=== PATIENT | male | born 1965 | race African-American/Black ===

== ENCOUNTER 2016-05-12 07:27 | Outpatient (CLI) | payer MEDICARE, OTHER ==
[2016-05-12 08:26] LABS: INR-International Normal Ratio 2.3; Prothrombin Time 25.6 SEC (12.0-14.7)
== END 2016-05-12 07:28 | disposition home or self-care (01) ==
LOC: MADLAB 07:27
PROVIDERS: ATTEND Pharmacist
DX: Z51.81 Encounter for therapeutic drug level monitoring (principal); Z79.01 Long term (current) use of anticoagulants
CPT/HCPCS: 36415; 85610

== ENCOUNTER 2016-05-25 23:24 | Emergency (ER) | payer MEDICARE, OTHER ==
[2016-05-26] MEDS ORDERED: cloNIDine HCl 0.1 MG TAB ONE
--- NOTE | 2016-05-26 00:41 | ERRECORD ---
[facility] EMERGENCY RECORD HPI HYPERTENSION (23:55 SHAN) CHIEF COMPLAINT: Patient presents for evaluation of high blood pressure. HISTORIAN: History provided by patient, States that his bp went up after dialysis today. TIME COURSE: Gradual onset of symptoms. ASSOCIATED WITH: No associated symptoms. ROS (23:56 SHAN) CONSTITUTIONAL: Negative constitutional review of systems, Historian denies chills, denies fever. EYES: Negative eye review of systems. ENT: Negative ears, nose, throat review of systems. CARDIOVASCULAR: Negative cardiovascular review of systems, Historian denies chest pain, denies palpitations. RESPIRATORY: Negative respiratory review of systems, Historian denies cough, denies shortness of breath. GI: Negative gastrointestinal review of systems, Historian denies abdominal pain, denies constipation, denies diarrhea. MUSCULOSKELETAL: Negative musculoskeletal review of systems. SKIN: Negative skin review of systems. NEUROLOGIC: Negative neurologic review of systems. ENDOCRINE: Negative endocrine review of systems. HEMO/LYMPHATIC: Normal hematologic/lymphatic system review. PSYCHIATRIC: Negative psychiatric review of systems. NOTES: All other ROS is negative except as listed in HPI. PAST MEDICAL HISTORY MEDICAL HISTORY: Flu vaccine up to date, Date of immunization: 01/2016, Tetanus immunization up to date, Date of immunization: 2015, Pneumococcal vaccine up to date, Date of immunization: 2015, Past medical history includes cardiac history, congestive heart failure, pacer maker removed - life vest now.., Past medical history includes history of hypertension, which has been treated, Flu vaccine up to date, Tetanus immunization up to date, Past medical history includes renal disease, failure on hemodialysis, (T,TH,SAT) Past medical history includes cardiac history, Past medical history includes history of hypertension, which has been treated. Notes: PT LAST ADMITTED IN 2009 FOR CHF AT [facility] Past medical history includes cardiac history, Past medical history includes history of hypertension, which has been treated. REVIEWED ON 02/28/16. reviewed 2-06-09. 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 05/16/14 Valve Replacement 2009 at [facility] in [place]. AICD PLACED 08/2014 AT [facility]. AICH REMOVED DEC 2015 DUE TO INFECTION. REVIEWED ON 02/28/16. reviewed 2-. (23:49 MCRS) PSYCHIATRIC HISTORY: No previous psychiatric history. REVIEWED ON 02/28/16. (23:49 MCRS) &a-1R&a+25V*p+0X*j9242X*c202B*c15G*c2P*p-0X&a-25V&a+1R Name: Iam Hutchison : 1965 M51 MedRec: [id number] AcctNum: [id number] Prepared: SunMay 26, 2016 00:41 by Interface Page 1 of 4 pMD [facility] EMERGENCY RECORD SOCIAL HISTORY: Patient denies alcohol use, Patient denies drug use, Patient has no smoking history, Patient denies alcohol use, Patient denies drug use, Patient has no smoking history, Patient has no smoking history, Patient denies alcohol use, DENIES DRUGS. REVIEWED ON 02/28/16. (23:49 MCRS) FAMILY HISTORY: CHF HX. dm and htn. (23:49 MCRS) NOTES: I have reviewed and agree with the PMH/PSxH/FamHx/SocHx obtained by the nurse. (23:56 SHAN) KNOWN ALLERGIES No Known Allergies CURRENT MEDICATIONS (23:41 MCRS) amiodarone: TABLET : Strength - 200 mg : ORAL Patient Dose: 200 mg Oral 2 times a day. Iron (ferrous sulfate): TABLET : Strength - 325 mg (65 mg iron) : ORAL Patient Dose: 325 mg Oral 2 times a day. Revatio: TABLET : Strength - 20 mg : ORAL Patient Dose: 20 mg Oral 3 times a day. Coreg: TABLET : Strength - 3.125 mg : ORAL Patient Dose: 3.125 mg Oral 2 times a day. Aspir-Low: TABLET, DELAYED RELEASE (ENTERIC COATED) : Strength - 81 mg : ORAL Patient Dose: 81 mg Oral once a day. warfarin: TABLET : Strength - 7.5 mg : ORAL Patient Dose: 7.5 mg Oral once a day. furosemide: TABLET : Strength - 80 mg : ORAL Patient Dose: 80 mg Oral 2 times a day. VITAL SIGNS VITAL SIGNS: BP: 158/111 (Sitting), Pulse: 83, Resp: 22, Temp: 97.0 (Tympanic), Pain: 0, O2 sat: 99% on Room Air, Time: 05/25/2016 23:31. (23:31 MCRS) BP: 129/96, Pulse: 75, Resp: 18, Pain: 0, O2 sat: 99 on ra, Time: 05/25/2016 23:50. (23:50 MCRS) BP: 139/101, Pulse: 69, Resp: 14, O2 sat: 97 on Room Air, Time: 05/26/2016 00:05. (SunMay 26, 2016 00:05 MCRS) BP: 142/99, Pulse: 78, Resp: 16, Temp: 96.8, Pain: 0, O2 sat: 97 on ra, Time: 05/26/2016 00:30. (SunMay 26, 2016 00:30 MCRS) PHYSICAL EXAM (23:56 SHAN) CONSTITUTIONAL: Vital signs reviewed, Patient appears non toxic, Patient alert and oriented to person, place and time, Pt is in no apparent distress. &a-1R&a+25V*p+0X*m5385M*c202B*c15G*c2P*p-0X&a-25V&a+1R Name: Iam Hutchison : 1965 M51 MedRec: [id number] AcctNum: [id number] Prepared: SunMay 26, 2016 00:41 by Interface Page 2 of 4 pMD [facility] EMERGENCY RECORD HEAD: Head exam included findings of head atraumatic, normocephalic. EYES: Eye exam included findings of eyelids normal to inspection, Pupils equally round and reactive to light, Extraocular muscles intact. ENT: ENT exam normal, Nose exam normal, no nasal deformity, no bleeding from nares, Pharynx exam normal, Mouth exam normal, mucous membranes moist. NECK: Neck exam included findings of normal range of motion, Trachea midline. RESPIRATORY CHEST: Respiratory and chest exam normal, Breath sounds clear, No wheezing, No rales, Chest exam included findings of chest movement symmetrical, Chest expansion equal. CARDIOVASCULAR: Cardiovascular assessment normal, Cardiovascular exam included findings of heart rate regular rate and rhythm, Heart sounds normal. ABDOMEN MALE: Abdominal exam included findings of abdomen nontender, Bowel sounds normal, no mass, no pulsatile masses, no peritoneal signs, no rigidity, no guarding, no rebound. BACK: Back exam included findings of normal inspection, range of motion normal, no costovertebral angle tenderness. UPPER EXTREMITY: Upper extremity exam included findings of inspection normal, Range of motion normal. LOWER EXTREMITY: Lower extremity exam included findings of inspection normal, Range of motion normal. NEURO: Neuro exam findings include patient oriented to person, place and time, Speech normal, no focal motor deficits, no focal sensory deficits. SKIN: Skin exam included findings of skin warm, dry, and normal in color. LYMPHATIC: Lymphatic exam normal. PSYCHIATRIC: Psychiatric exam included findings of patient oriented to person place and time, Normal affect. MEDICATION ADMINISTRATION SUMMARY Drug Name: Catapres, Dose Ordered: 0.2 mg, Route: Oral, Status: Canceled, Time: 00:01 05/26/2016, Drug Name: *Catapres, Dose Ordered: 1 tab(s), Route: Oral, Status: Given, Time: 00:05/26/2016, *Additional information available in notes, Detailed record available in Medication Service section. DOCTOR NOTES TEXT: Adult male on dialysis; bp went up today. (23:56 SHAN) Blood pressure came down largely with rest; gave 0.1 mg clonidine po. Appears to have some sleep apnea noted; discussed. (SunMay 26, 2016 00:19 SHAN) PROBLEM LIST &a-1R&a+25V*p+0X*m8824T*c202B*c15G*c2P*p-0X&a-25V&a+1R Name: Iam Hutchison : 1965 M51 MedRec: [id number] AcctNum: [id number] Prepared: SunMay 26, 2016 00:41 by Interface Page 3 of 4 pMD [facility] EMERGENCY RECORD No recorded problems DIAGNOSIS (SunMay 26, 2016 00:21 SHAN) FINAL: PRIMARY: Hypertension, ADDITIONAL: chronic renal failure. PRESCRIPTION No recorded prescriptions DISPOSITION PATIENT: Disposition Type: Discharge, Disposition: *Discharge Home. (SunMay 26, 2016 00:21 SHAN) Disposition Transport: Car. (SunMay 26, 2016 00:39 [facility]) Patient left the department. (SunMay 26, 2016 00:39 [facility]) Dunaway: MARINA=EHSAN Barron, Km DELANEY=MD Saima, Lionel &a-1R&a+25V*p+0X*t7519A*c202B*c15G*c2P*p-0X&a-25V&a+1R Name: Iam Hutchison : 1965 M51 MedRec: [id number] AcctNum: [id number] Prepared: SunMay 26, 2016 00:41 by Interface Page 4 of 4 pMD MTDD
--- NOTE | 2016-05-26 00:44 | PICIS ---
[facility] EMERGENCY RECORD TRIAGE (SunMay 25, 2016 23:36 MCRS) TRIAGE NOTES: high blood pressure - nausia and vomiting since 1 hour. (SunMay 25, 2016 23:36 MCRS) PATIENT: NAME: Iam Hutchison, AGE: 51, GENDER: male, : Sat 1965, TIME OF GREET: SunMay 25, 2016 23:25, PREFERRED LANGUAGE: Arabic, ETHNICITY: Not or , FALL RISK: NO, ECODE BILLING MAP: [facility], SSN: [id number], Zip Code: [address], KG WEIGHT: 97.07 (est.), PHONE: CELL, , , PERSON ID: [id number], PCP: MD Barron Olayemi. (SunMay 25, 2016 23:36 MCRS) COMPLAINT: BLOOD PRESSURE. (SunMay 25, 2016 23:36 MCRS) ADMISSION: URGENCY: 3 Urgent, ADMISSION SOURCE: Home, TRANSPORT: CAR, BED: ED -03. (SunMay 25, 2016 23:36 MCRS) ASSESSMENT: Assessment: complaint of high blood pressure via checked at home ... note that patient had dialysis today and patient stated this is a cintributing factor..., Symptoms began 1 hour ago. (23:49 MCRS) IMMUNIZATIONS: Flu vaccine up to date, Tetanus immunization up to date, Pneumococcal vaccine up to date. (23:49 MCRS) SIRS SCORING: Heart Rate 55-109 (0), Temp range 96.8-101.1 (0), respiratory rate 12-24 (0), Mental Status altered: no (0), Infection or Suspected Infection: No. (23:49 MCRS) PROVIDERS: TRIAGE NURSE: Km Barron RN. (SunMay 25, 2016 23:36 MCRS) VITAL SIGNS: BP 158/111, (Sitting), Pulse 83, Resp 22, Temp 97.0, (Tympanic), Pain 0, O2 Sat 99%, on Room Air, Time 05/25/2016 23:31. (23:31 MCRS) PREVIOUS VISIT ALLERGIES: No Known Allergies. (Monisha May 25, 2016 23:36 MCRS) No Known Allergies. (23:49 MCRS) KNOWN ALLERGIES No Known Allergies CURRENT MEDICATIONS (23:41 MCRS) amiodarone: TABLET : Strength - 200 mg : ORAL Patient Dose: 200 mg Oral 2 times a day. Iron (ferrous sulfate): TABLET : Strength - 325 mg (65 mg iron) : ORAL Patient Dose: 325 mg Oral 2 times a day. Revatio: TABLET : Strength - 20 mg : ORAL Patient Dose: 20 mg Oral 3 times a day. Coreg: TABLET : Strength - 3.125 mg : ORAL Patient Dose: 3.125 mg Oral 2 times a day. Aspir-Low: TABLET, DELAYED RELEASE (ENTERIC COATED) : Strength - 81 mg : ORAL Patient Dose: 81 mg Oral once a day. &a-1R&a+25V*p+0X*a6167B*c202B*c15G*c2P*p-0X&a-25V&a+1R Name: Iam Hutchison Archie : 1965 M51 MedRec: [id number] AcctNum: [id number] Prepared: SunMay 26, 2016 00:48 by Interface Page 1 of 6 pMD [facility] EMERGENCY RECORD warfarin: TABLET : Strength - 7.5 mg : ORAL Patient Dose: 7.5 mg Oral once a day. furosemide: TABLET : Strength - 80 mg : ORAL Patient Dose: 80 mg Oral 2 times a day. VITAL SIGNS VITAL SIGNS: BP: 158/111 (Sitting), Pulse: 83, Resp: 22, Temp: 97.0 (Tympanic), Pain: 0, O2 sat: 99% on Room Air, Time: 05/25/2016 23:31. (23:31 MCRS) BP: 129/96, Pulse: 75, Resp: 18, Pain: 0, O2 sat: 99 on ra, Time: 05/25/2016 23:50. (23:50 MCRS) BP: 139/101, Pulse: 69, Resp: 14, O2 sat: 97 on Room Air, Time: 05/26/2016 00:05. (SunMay 26, 2016 00:05 MCRS) BP: 142/99, Pulse: 78, Resp: 16, Temp: 96.8, Pain: 0, O2 sat: 97 on ra, Time: 05/26/2016 00:30. (SunMay 26, 2016 00:30 MCRS) NURSING ASSESSMENT: CARDIOVASCULAR (23:50 MCRS) CONSTITUTIONAL: Patient arrives ambulatory, Gait steady, History obtained from patient, Patient appears comfortable, Patient cooperative, Patient alert, Oriented to person, place and time, Skin warm, Skin dry, Skin normal in color, Mucous membranes pink, Mucous membranes, dry, Patient is well-groomed, Patient complains of nausia - high blood pressure, taken at home - 160/124. CARDIOVASCULAR: Cardiovascular assessment findings include heart rate normal, Heart rhythm normal sinus, Heart sounds, artifical valve click, Left radial pulse +3(easily palpated, considered normal), Right radial pulse +3(easily palpated, considered normal), Left dorsalis pedis pulse +3(easily palpated, considered normal), Right dorsalis pedis pulse +3(easily palpated, considered normal), Notes: history chf. RESPIRATORY/CHEST: Breath sounds clear, Respiratory assessment findings include respiratory effort easy, Respirations regular, Conversing normally, Neck and chest exam findings include trachea midline, Chest expansion equal, Chest movement symmetrical. SAFETY: Side rails up, Cart/Stretcher in lowest position, Family at bedside, Call light within reach, Hospital ID band on. VITAL SIGNS: BP: 129, / 96, Pulse: 75, Resp: 18, Pain: 0, O2 sat: 99, on: ra. NURSING PROCEDURE: COMMERCIAL AIRPLANE PILOT (SunMay 26, 2016 00:01 MCRS) PATIENT IDENTIFIER: Patient actively involved in identification process, Patient's identity verified by hospital ID saturnino. COMMERCIAL AIRPLANE PILOT: Patient placed on non-invasive blood pressure monitor, Patient placed on continuous pulse oximetry. NURSING PROCEDURE: DISCHARGE NOTE (SunMay 26, 2016 00:30 MCRS) DISCHARGE: Patient discharged to home, in a wheelchair, &a-1R&a+25V*p+0X*l8731Y*c202B*c15G*c2P*p-0X&a-25V&a+1R Name: Iam Hutchison : 1965 M51 MedRec: [id number] AcctNum: [id number] Prepared: SunMay 26, 2016 00:48 by Interface Page 2 of 6 pMD [facility] EMERGENCY RECORD family driving, accompanied by other family member, Summary of Care printed/ provided, Patient requested and was provided an electronic copy of Discharge Instructions, Transition record given to patient, Discharge instructions given to patient, Simple or moderate discharge teaching performed, discharge instructions, Medication reconciliation form given, and reviewed with see list, Above person(s) verbalized understanding of discharge instructions and follow-up care, Patient treated and evaluated by physician. BELONGINGS: Valuables remain with patient. VITAL SIGNS: BP: 142, / 99, Pulse: 78, Resp: 16, Temp: 96.8, Pain: 0, O2 sat: 97, on: ra. MEDICATION ADMINISTRATION SUMMARY Drug Name: Catapres, Dose Ordered: 0.2 mg, Route: Oral, Status: Canceled, Time: 00:01 05/26/2016, Drug Name: *Catapres, Dose Ordered: 1 tab(s), Route: Oral, Status: Given, Time: 00:01 05/26/2016, *Additional information available in notes, Detailed record available in Medication Service section. MEDICATION SERVICE Catapres: Order: Catapres (clonidine HCl) - Dose: 1 tab(s) : Oral Schedule: Now Notes: 0.1 mg po Ordered by: Lionel Landaverde MD Entered by: Lionel Landaverde MD SunMay 26, 2016 00:01 , Acknowledged by: Km Barron RN SunMay 26, 2016 00:03 Documented as given by: Km Barron RN SunMay 26, 2016 00:01 Patient, Medication, Dose, Route and Time verified prior to administration. Amount given: 0.1mg, Site: Medication administered P.O., Patient appears Awake and alert- acceptable, Correct patient, time, route, dose and medication confirmed prior to administration, Patient advised of actions and side-effects prior to administration, Allergies confirmed and medications reviewed prior to administration, Patient in position of comfort, Side rails up, Cart in lowest position, Family at bedside. : Follow Up : Response assessment performed, No signs or symptoms of allergic reaction noted, Decreased blood pressure. (SunMay 26, 2016 00:30 MCRS) (CANCELED) Catapres: Order: Catapres (clonidine HCl) - Dose: 0.2 mg : Oral Schedule: Now Ordered by: Lionel Landaverde MD Entered by: Lionel Landaverde MD [facility] May 25, 2016 23:51 , Acknowledged by: Km Barron RN [facility] May 25, 2016 23:58 Canceled by: Lionel Landaverde MD. SunMay 26, 2016 00:01 Cancel reason: Change in medication plan. &a-1R&a+25V*p+0X*q9654G*c202B*c15G*c2P*p-0X&a-25V&a+1R Name: Iam Hutchison : 1965 M51 MedRec: [id number] AcctNum: [id number] Prepared: SunMay 26, 2016 00:48 by Interface Page 3 of 6 pMD [facility] EMERGENCY RECORD HPI HYPERTENSION (23:55 SHAN) CHIEF COMPLAINT: Patient presents for evaluation of high blood pressure. HISTORIAN: History provided by patient, States that his bp went up after dialysis today. TIME COURSE: Gradual onset of symptoms. ASSOCIATED WITH: No associated symptoms. ROS (23:56 SHAN) CONSTITUTIONAL: Negative constitutional review of systems, Historian denies chills, denies fever. EYES: Negative eye review of systems. ENT: Negative ears, nose, throat review of systems. CARDIOVASCULAR: Negative cardiovascular review of systems, Historian denies chest pain, denies palpitations. RESPIRATORY: Negative respiratory review of systems, Historian denies cough, denies shortness of breath. GI: Negative gastrointestinal review of systems, Historian denies abdominal pain, denies constipation, denies diarrhea. MUSCULOSKELETAL: Negative musculoskeletal review of systems. SKIN: Negative skin review of systems. NEUROLOGIC: Negative neurologic review of systems. ENDOCRINE: Negative endocrine review of systems. HEMO/LYMPHATIC: Normal hematologic/lymphatic system review. PSYCHIATRIC: Negative psychiatric review of systems. NOTES: All other ROS is negative except as listed in HPI. PAST MEDICAL HISTORY MEDICAL HISTORY: Flu vaccine up to date, Date of immunization: 01/2016, Tetanus immunization up to date, Date of immunization: 2015, Pneumococcal vaccine up to date, Date of immunization: 2015, Past medical history includes cardiac history, congestive heart failure, pacer maker removed - life vest now.., Past medical history includes history of hypertension, which has been treated, Flu vaccine up to date, Tetanus immunization up to date, Past medical history includes renal disease, failure on hemodialysis, (T,TH,SAT) Past medical history includes cardiac history, Past medical history includes history of hypertension, which has been treated. Notes: PT LAST ADMITTED IN 2009 FOR CHF AT [facility] Past medical history includes cardiac history, Past medical history includes history of hypertension, which has been treated. REVIEWED ON 02/28/16. reviewed 05-25-16. 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 05/16/14 Valve Replacement 2009 at [facility] in [place]. AICD PLACED 08/2014 AT [facility]. AICH REMOVED DEC 2015 DUE TO INFECTION. REVIEWED ON 02/28/16. reviewed 05-25-2016. (23:49 MCRS) PSYCHIATRIC HISTORY: No previous psychiatric history. REVIEWED ON 02/28/16. (23:49 MCRS) &a-1R&a+25V*p+0X*v5787C*c202B*c15G*c2P*p-0X&a-25V&a+1R Name: Iam Hutchison : 1965 M51 MedRec: [id number] AcctNum: [id number] Prepared: SunMay 26, 2016 00:48 by Interface Page 4 of 6 pMD [facility] EMERGENCY RECORD SOCIAL HISTORY: Patient denies alcohol use, Patient denies drug use, Patient has no smoking history, Patient denies alcohol use, Patient denies drug use, Patient has no smoking history, Patient has no smoking history, Patient denies alcohol use, DENIES DRUGS. REVIEWED ON 02/28/16. (23:49 MCRS) FAMILY HISTORY: CHF HX. dm and htn. (23:49 MCRS) NOTES: I have reviewed and agree with the PMH/PSxH/FamHx/SocHx obtained by the nurse. (23:56 SHAN) PHYSICAL EXAM (23:56 SHAN) CONSTITUTIONAL: Vital signs reviewed, Patient appears non toxic, Patient alert and oriented to person, place and time, Pt is in no apparent distress. HEAD: Head exam included findings of head atraumatic, normocephalic. EYES: Eye exam included findings of eyelids normal to inspection, Pupils equally round and reactive to light, Extraocular muscles intact. ENT: ENT exam normal, Nose exam normal, no nasal deformity, no bleeding from nares, Pharynx exam normal, Mouth exam normal, mucous membranes moist. NECK: Neck exam included findings of normal range of motion, Trachea midline. RESPIRATORY CHEST: Respiratory and chest exam normal, Breath sounds clear, No wheezing, No rales, Chest exam included findings of chest movement symmetrical, Chest expansion equal. CARDIOVASCULAR: Cardiovascular assessment normal, Cardiovascular exam included findings of heart rate regular rate and rhythm, Heart sounds normal. ABDOMEN MALE: Abdominal exam included findings of abdomen nontender, Bowel sounds normal, no mass, no pulsatile masses, no peritoneal signs, no rigidity, no guarding, no rebound. BACK: Back exam included findings of normal inspection, range of motion normal, no costovertebral angle tenderness. UPPER EXTREMITY: Upper extremity exam included findings of inspection normal, Range of motion normal. LOWER EXTREMITY: Lower extremity exam included findings of inspection normal, Range of motion normal. NEURO: Neuro exam findings include patient oriented to person, place and time, Speech normal, no focal motor deficits, no focal sensory deficits. SKIN: Skin exam included findings of skin warm, dry, and normal in color. LYMPHATIC: Lymphatic exam normal. PSYCHIATRIC: Psychiatric exam included findings of patient oriented to person place and time, Normal affect. EVENTS TRANSFER: Triage to Emergency Main ED -03. (SunMay 25, 2016 23:36 MCRS) &a-1R&a+25V*p+0X*c4161X*c202B*c15G*c2P*p-0X&a-25V&a+1R Name: Iam Hutchison : 1965 M51 MedRec: [id number] AcctNum: [id number] Prepared: SunMay 26, 2016 00:48 by Interface Page 5 of 6 pMD [facility] EMERGENCY RECORD Removed from Emergency Main ED -03. (SunMay 26, 2016 00:40 MCRS) DOCTOR NOTES TEXT: Adult male on dialysis; bp went up today. (23:56 SHAN) Blood pressure came down largely with rest; gave 0.1 mg clonidine po. Appears to have some sleep apnea noted; discussed. (SunMay 26, 2016 00:19 SHAN) PROBLEM LIST No recorded problems DIAGNOSIS (SunMay 26, 2016 00:21 SHAN) FINAL: PRIMARY: Hypertension, ADDITIONAL: chronic renal failure. DISPOSITION PATIENT: Disposition Type: Discharge, Disposition: *Discharge Home. (SunMay 26, 2016 00:21 SHAN) Disposition Transport: Car. (SunMay 26, 2016 00:39 MCRS) Patient left the department. (SunMay 26, 2016 00:39 [facility]) INSTRUCTION (SunMay 26, 2016 00:22 SHAN) DISCHARGE: HYPERTENSION, ESTABLISHED. FOLLOWUP: MD Anderson, Ching, [facility], [address] [place] [address], . SPECIAL: 1. followup with regular provider in a few days 2. discuss with them some likely sleep apnea; oxygen sats dropped while sleeping in the er. PRESCRIPTION No recorded prescriptions IMAGING *SUPPLY CHARGE SHEET: Image captured from scanner. (SunMay 26, 2016 00:34 MCRS) *DISCHARGE INSTRUCTIONS RECEIPT: Image captured from scanner. (SunMay 26, 2016 00:36 MCRS) ADMIN (SunMay 26, 2016 00:23 ELAINA) DIGITAL SIGNATURE: MD Saima, Lionel. MD Saima, Lionel. Dunaway: [facility]=EHSAN Barron, Km DELANEY=MD Landaverde Stanley &a-1R&a+25V*p+0X*j6717I*c202B*c15G*c2P*p-0X&a-25V&a+1R Name: Iam Hutchison : 1965 M51 MedRec: [id number] AcctNum: [id number] Prepared: SunMay 26, 2016 00:48 by Interface Page 6 of 6 pMD MTDD
== END 2016-05-26 00:30 | disposition home or self-care (01) ==
LOC: MADERS 23:24
DX: I13.0 Hypertensive heart and chronic kidney disease with heart failure and stage 1 through stage 4 chronic kidney disease, or unspecified chronic kidney disease (principal); N18.9 Chronic kidney disease, unspecified; I50.9 Heart failure, unspecified; Z79.01 Long term (current) use of anticoagulants; Z79.899 Other long term (current) drug therapy
CPT/HCPCS: 99283

== ENCOUNTER 2016-05-29 10:43 | Outpatient (CLI) | payer MEDICARE, OTHER ==
[2016-05-29 11:20] LABS: Prothrombin Time 48.8 SEC (12.0-14.7)
[2016-05-29 11:21] LABS: INR-International Normal Ratio 5.5
== END 2016-05-29 10:44 | disposition home or self-care (01) ==
LOC: MADLAB 10:43
PROVIDERS: ATTEND Pharmacist
DX: Z51.81 Encounter for therapeutic drug level monitoring (principal); Z79.01 Long term (current) use of anticoagulants
CPT/HCPCS: 36415; 85610

== ENCOUNTER 2016-06-02 08:31 | Outpatient (CLI) | payer MEDICARE, OTHER ==
[2016-06-02 10:39] LABS: INR-International Normal Ratio 2.5; Prothrombin Time 26.5 SEC (12.0-14.7)
== END 2016-06-02 08:32 | disposition home or self-care (01) ==
LOC: MADLAB 08:31
PROVIDERS: ATTEND Pharmacist
DX: Z51.81 Encounter for therapeutic drug level monitoring (principal); Z79.01 Long term (current) use of anticoagulants
CPT/HCPCS: 36415; 85610

== ENCOUNTER 2016-06-12 07:53 | Outpatient (CLI) | payer MEDICARE, OTHER ==
[2016-06-12 09:22] LABS: Prothrombin Time 41.6 SEC (12.0-14.7)
[2016-06-12 09:57] LABS: INR-International Normal Ratio 4.5
== END 2016-06-12 07:54 | disposition home or self-care (01) ==
LOC: MADLAB 07:53
PROVIDERS: ATTEND Internal Medicine Interventional Cardiology
DX: Z51.81 Encounter for therapeutic drug level monitoring (principal); Z79.01 Long term (current) use of anticoagulants
CPT/HCPCS: 36415; 85610

== ENCOUNTER 2016-06-19 06:55 | Outpatient (CLI) | payer MEDICARE, OTHER ==
[2016-06-19 07:44] LABS: Prothrombin Time 43.3 SEC (12.0-14.7)
[2016-06-19 07:48] LABS: INR-International Normal Ratio 4.7
== END 2016-06-19 06:56 | disposition home or self-care (01) ==
LOC: MADLAB 06:55
PROVIDERS: ATTEND Internal Medicine Interventional Cardiology
DX: Z51.81 Encounter for therapeutic drug level monitoring (principal); Z79.01 Long term (current) use of anticoagulants
CPT/HCPCS: 36415; 85610

== ENCOUNTER 2016-06-26 07:34 | Outpatient (CLI) | payer MEDICARE, OTHER ==
[2016-06-26 08:33] LABS: INR-International Normal Ratio 3.5; Prothrombin Time 34.9 SEC (12.0-14.7)
== END 2016-06-26 07:35 | disposition home or self-care (01) ==
LOC: MADLAB 07:34
PROVIDERS: ATTEND Internal Medicine Interventional Cardiology
DX: Z51.81 Encounter for therapeutic drug level monitoring (principal); Z79.01 Long term (current) use of anticoagulants; I47.1 Supraventricular tachycardia
CPT/HCPCS: 36415; 85610

== ENCOUNTER 2016-06-26 07:42 | Outpatient (CLI) | payer OTHER ==
[2016-06-26 08:40] LABS: ALT (SGPT) 30 U/L (0-55); AST (SGOT) 28 U/L (5-34); Albumin 4.1 g/dL (3.5-5.0); Alkaline Phosphatase 60 U/L (40-150); Anion Gap 21 mmol/L (10-20); BUN (Urea Nitrogen) 54 mg/dL (8.4-25.7); Bilirubin, Total 0.4 mg/dL (0.2-1.2); Calc. Creatinine Clearance 0 mL/min (70-130); Calcium 8.5 mg/dL (7.8-10.44); Carbon Dioxide 20 mmol/L (22-29); Chloride 96 mmol/L (98-107); Estimated GFR-MDRD 9; Globulin 4.3 g/dL (2.4-3.5); Glucose 118 mg/dL (70-105); Potassium 3.3 mmol/L (3.5-5.1); Protein, Total 8.4 g/dL (6.0-8.3); Sodium 134 mmol/L (136-145)
[2016-06-26 10:40] LABS: Bilirubin Negative (Negative); Blood, Urine Negative (Negative); Clarity Clear (Clear); Glucose, Urine (Dipstick) Negative (Negative); Leukocyte Trace (Negative); Nitrite Negative (Negative); Protein, Urine (Dipstick) 30 mg/dL (Neg-Trace); Urobilinogen 0.2 mg/dL (0.2-1.0); pH, Urine 5.5 (5.0-9.0)
[2016-06-26 17:55] LABS: Creatinine, Urine 208.02 mg/dL (63-166); Microalbumin Urine 12.5 mg/dL (0.5-50.0); Microalbumin/Creat Ratio 60.1 mg/g (Less than 30)
== END 2016-06-26 07:43 | disposition home or self-care (01) ==
LOC: MADLAB 07:42
PROVIDERS: ATTEND Internal Medicine Interventional Cardiology
DX: N28.1 Cyst of kidney, acquired (principal)
CPT/HCPCS: 80053; 81003; 82043

== ENCOUNTER 2016-07-03 08:08 | Outpatient (CLI) | payer MEDICARE ==
[2016-07-03 08:36] LABS: INR-International Normal Ratio 3.3; Prothrombin Time 32.9 SEC (12.0-14.7)
== END 2016-07-03 08:09 | disposition home or self-care (01) ==
LOC: MADLAB 08:08
PROVIDERS: ATTEND Internal Medicine Interventional Cardiology
DX: Z51.81 Encounter for therapeutic drug level monitoring (principal); Z79.01 Long term (current) use of anticoagulants; I47.1 Supraventricular tachycardia
CPT/HCPCS: 36415; 85610

== ENCOUNTER 2016-07-10 10:29 | Outpatient (CLI) | payer MEDICARE ==
[2016-07-10 11:01] LABS: INR-International Normal Ratio 3.8; Prothrombin Time 37.1 SEC (12.0-14.7)
== END 2016-07-10 10:30 | disposition home or self-care (01) ==
LOC: MADLAB 10:29
PROVIDERS: ATTEND Internal Medicine Interventional Cardiology
DX: Z51.81 Encounter for therapeutic drug level monitoring (principal); Z79.01 Long term (current) use of anticoagulants
CPT/HCPCS: 36415; 85610

== ENCOUNTER 2016-07-19 09:17 | Outpatient (CLI) | payer MEDICARE ==
[2016-07-19 09:48] LABS: INR-International Normal Ratio 3.3; Prothrombin Time 32.9 SEC (12.0-14.7)
== END 2016-07-19 09:18 | disposition home or self-care (01) ==
LOC: MADLAB 09:17
PROVIDERS: ATTEND Internal Medicine Interventional Cardiology
DX: Z51.81 Encounter for therapeutic drug level monitoring (principal); Z79.01 Long term (current) use of anticoagulants
CPT/HCPCS: 36415; 85610

== ENCOUNTER 2016-07-24 08:03 | Outpatient (CLI) | payer MEDICARE ==
[2016-07-24 08:29] LABS: INR-International Normal Ratio 3.5; Prothrombin Time 34.4 SEC (12.0-14.7)
== END 2016-07-24 08:04 | disposition home or self-care (01) ==
LOC: MADLAB 08:03
PROVIDERS: ATTEND Internal Medicine Interventional Cardiology
DX: Z51.81 Encounter for therapeutic drug level monitoring (principal); Z79.01 Long term (current) use of anticoagulants
CPT/HCPCS: 36415; 85610

== ENCOUNTER 2016-08-04 12:31 | Outpatient (CLI) | payer MEDICARE ==
[2016-08-04 13:14] LABS: INR-International Normal Ratio 2.8; Prothrombin Time 29.6 SEC (12.0-14.7)
== END 2016-08-04 12:32 | disposition home or self-care (01) ==
LOC: MADLAB 12:31
PROVIDERS: ATTEND Internal Medicine Interventional Cardiology
DX: Z51.81 Encounter for therapeutic drug level monitoring (principal); Z79.01 Long term (current) use of anticoagulants
CPT/HCPCS: 36415; 85610

== ENCOUNTER 2016-08-18 08:50 | Outpatient (CLI) | payer MEDICARE ==
[2016-08-18 14:11] LABS: Prothrombin Time 30.9 SEC (12.0-14.7)
== END 2016-08-18 08:51 | disposition home or self-care (01) ==
LOC: MADLAB 08:50
PROVIDERS: ATTEND Internal Medicine Interventional Cardiology
DX: Z51.81 Encounter for therapeutic drug level monitoring (principal); I47.1 Supraventricular tachycardia; Z79.01 Long term (current) use of anticoagulants
CPT/HCPCS: 36415; 85610

== ENCOUNTER → 2016-09-03 | Emergency (ER) | payer MEDICARE ==
[~2016-09-03] MED LIST: Triple Antibiotic Oint 1 GM Packet ONE
== END ==
LOC: MADERS 11:09
DX: T81.4XXA Infection following a procedure, initial encounter (principal); I13.0 Hypertensive heart and chronic kidney disease with heart failure and stage 1 through stage 4 chronic kidney disease, or unspecified chronic kidney disease; N18.9 Chronic kidney disease, unspecified; I50.9 Heart failure, unspecified; Z79.82 Long term (current) use of aspirin; Z79.899 Other long term (current) drug therapy
CPT/HCPCS: 87070; 87077; 87186; 87205; 99283

== ENCOUNTER 2016-09-04 07:45 | Outpatient (CLI) | payer MEDICARE ==
[2016-09-04 08:38] LABS: INR-International Normal Ratio 3.8; Prothrombin Time 36.6 SEC (12.0-14.7)
== END 2016-09-04 07:46 | disposition home or self-care (01) ==
LOC: MADLAB 07:45
PROVIDERS: ATTEND Internal Medicine Interventional Cardiology
DX: Z51.81 Encounter for therapeutic drug level monitoring (principal); I47.1 Supraventricular tachycardia; Z79.01 Long term (current) use of anticoagulants
CPT/HCPCS: 36415; 85610

== ENCOUNTER 2016-09-08 07:50 | Outpatient (CLI) | payer MEDICARE ==
[2016-09-08 08:23] LABS: INR-International Normal Ratio 3.7; Prothrombin Time 35.9 SEC (12.0-14.7)
== END 2016-09-08 07:51 | disposition home or self-care (01) ==
LOC: MADLAB 07:50
PROVIDERS: ATTEND Internal Medicine Interventional Cardiology
DX: Z51.81 Encounter for therapeutic drug level monitoring (principal); I47.1 Supraventricular tachycardia; Z79.01 Long term (current) use of anticoagulants
CPT/HCPCS: 36415; 85610

== ENCOUNTER 2016-09-12 10:46 | Outpatient (CLI) | payer MEDICARE ==
[2016-09-12 11:18] LABS: Prothrombin Time 39.5 SEC (12.0-14.7)
[2016-09-12 13:53] LABS: INR-International Normal Ratio 4.2
== END 2016-09-12 10:47 | disposition home or self-care (01) ==
LOC: MADLAB 10:46
PROVIDERS: ATTEND Internal Medicine Interventional Cardiology
DX: Z51.81 Encounter for therapeutic drug level monitoring (principal); I47.1 Supraventricular tachycardia; Z79.01 Long term (current) use of anticoagulants
CPT/HCPCS: 36415; 85610

== ENCOUNTER 2016-09-25 11:19 | Outpatient (CLI) | payer MEDICARE ==
[2016-09-25 11:45] LABS: INR-International Normal Ratio 2.5; Prothrombin Time 26.5 SEC (12.0-14.7)
== END 2016-09-25 11:20 | disposition home or self-care (01) ==
LOC: MADLAB 11:19
PROVIDERS: ATTEND Internal Medicine Interventional Cardiology
DX: Z51.81 Encounter for therapeutic drug level monitoring (principal); Z79.01 Long term (current) use of anticoagulants
CPT/HCPCS: 36415; 85610

== ENCOUNTER 2016-10-03 09:33 | Outpatient (CLI) | payer MEDICARE ==
[2016-10-03 11:12] LABS: INR-International Normal Ratio 2.4; Prothrombin Time 26.2 SEC (12.0-14.7)
== END 2016-10-03 09:34 | disposition home or self-care (01) ==
LOC: MADLAB 09:33
PROVIDERS: ATTEND Internal Medicine Interventional Cardiology
DX: Z51.81 Encounter for therapeutic drug level monitoring (principal); Z79.01 Long term (current) use of anticoagulants
CPT/HCPCS: 36415; 85610

== ENCOUNTER 2016-10-14 22:06 | Emergency (ER) | payer MEDICARE | END 2016-10-14 23:15 | disposition home or self-care (01) | LOC: MADERS 22:06 | DX: Z48.01 Encounter for change or removal of surgical wound dressing (principal); I11.0 Hypertensive heart disease with heart failure; I50.9 Heart failure, unspecified; Z99.2 Dependence on renal dialysis | CPT/HCPCS: 99282 ==

== ENCOUNTER 2016-10-25 11:20 | Outpatient (CLI) | payer MEDICARE ==
[2016-10-25 12:07] LABS: INR-International Normal Ratio 3.1; Prothrombin Time 31.6 SEC (12.0-14.7)
== END 2016-10-25 11:21 | disposition home or self-care (01) ==
LOC: MADLAB 11:20
PROVIDERS: ATTEND Internal Medicine Interventional Cardiology
DX: Z51.81 Encounter for therapeutic drug level monitoring (principal); Z79.01 Long term (current) use of anticoagulants
CPT/HCPCS: 36415; 85610

== ENCOUNTER 2016-11-01 11:02 | Outpatient (CLI) | payer MEDICARE ==
[2016-11-01 11:29] LABS: INR-International Normal Ratio 3.2; Prothrombin Time 32.2 SEC (12.0-14.7)
== END 2016-11-01 11:03 | disposition home or self-care (01) ==
LOC: MADLAB 11:02
PROVIDERS: ATTEND Internal Medicine Interventional Cardiology
DX: Z51.81 Encounter for therapeutic drug level monitoring (principal); Z79.01 Long term (current) use of anticoagulants
CPT/HCPCS: 36415; 85610

== ENCOUNTER 2016-12-04 13:35 | Outpatient (CLI) | payer MEDICARE ==
[2016-12-04 14:07] LABS: INR-International Normal Ratio 2.6; Prothrombin Time 29.2 SEC (12.0-14.7)
== END 2016-12-04 13:36 | disposition home or self-care (01) ==
LOC: MADLAB 13:35
PROVIDERS: ATTEND Internal Medicine Interventional Cardiology
DX: Z51.81 Encounter for therapeutic drug level monitoring (principal); Z79.01 Long term (current) use of anticoagulants
CPT/HCPCS: 36415; 85610

== ENCOUNTER 2016-12-18 14:46 | Emergency (ER) | payer MEDICARE ==
[~2016-12-18 14:46] MED LIST changes: +Phytonadione 10 MG/ML AMP ONE; -Triple Antibiotic Oint 1 GM Packet ONE
[2016-12-18] MEDS ORDERED: Labetalol HCl 100 MG/20 ML VIAL ONE (15:01)
[2016-12-18 15:21] LABS: #Eosinphils 0.1 thou/uL (0.0-0.7); #Lymphocytes 1.1 thou/uL (1.20-3.40); #Monocytes 0.4 thou/uL (0.11-0.59); #Neutrophils 5.8 thou/uL (1.40-6.50); %Basophils 0.6 % (0.0-1.0); %Eosinophils 0.8 % (0.0-10.0); %Lymphocytes 15.3 % (21.0-51.0); %Monocytes 5.4 % (0.0-10.0); %Neutrophils 77.9 % (42.0-75.0); Hemoglobin 12.9 g/dL (14.0-18.0); Mean Corpuscular HGB CONC 31.1 g/dL (32.0-36.0); Mean Corpuscular Hemoglobin 27.6 pg (27.0-31.0); Mean Corpuscular Volume 88.8 fl (80.0-94.0); Mean Platelet Volume 9.2 fL (7.4-10.4); Platelet Count 131 thou/uL (130-400); RBC Distribution Width 14.2 % (11.5-14.5); Red Blood Cell (RBC) Count 4.67 mill/uL (4.70-6.10); White Blood Cell (WBC) Count 7.4 thou/uL (4.8-10.8)
[2016-12-18 15:23] LABS: INR-International Normal Ratio 3.5; PTT 43.8 SEC (22.9-36.1); Prothrombin Time 36.6 SEC (12.0-14.7)
[2016-12-18 15:34] LABS: ALT (SGPT) 24 U/L (8-55); AST (SGOT) 24 U/L (5-34); Albumin 3.9 g/dL (3.5-5.0); Alkaline Phosphatase 47 U/L (40-150); Anion Gap 19 mmol/L (10-20); BUN (Urea Nitrogen) 69 mg/dL (8.4-25.7); Bilirubin, Total 0.3 mg/dL (0.2-1.2); CK (CPK) 212 U/L (30-200); Calc. Creatinine Clearance 0 mL/min (70-130); Calcium 9.4 mg/dL (7.8-10.44); Carbon Dioxide 24 mmol/L (22-29); Chloride 100 mmol/L (98-107); Estimated GFR-MDRD 9; Globulin 4.8 g/dL (2.4-3.5); Glucose 101 mg/dL (70-105); Magnesium 2.3 mg/dL (1.6-2.6); Potassium 3.6 mmol/L (3.5-5.1); Protein, Total 8.7 g/dL (6.0-8.3); Sodium 139 mmol/L (136-145)
--- NOTE | 2016-12-18 15:34 | CT ---
CERVICAL SPINE CT WITHOUT CONTRAST: Date: 12/18/16 COMPARISON: 09/12/13. TECHNIQUE: A cervical spine CT is performed without contrast. Reformatted images are submitted for interpretati on. FINDINGS: Visualized soft tissue neck structures are unremarkable. There are varying degrees of central canal stenosis and foraminal narrowing on the basis of degenera tive change. Upper mediastinum and lung apices are unremarkable. Coronal reformatted images demonstrate appropriate alignment of the lateral masses of C1 and C2. Odo ntoid process is intact. Adequate articulation of the interarticular facets. Sagittal reformatted images demonstrate straightening of normal cervical lordosis. There is no preve rtebral soft tissue swelling. Based on the axial images, cervical spine vertebral body heights are maintained. No fracture. IMPRESSION: No cervical spine fracture. POS: BLEKIS
[2016-12-18 15:36] LABS: CKMB 3.8 ng/mL (0-6.6); Troponin I 0.104 ng/mL (< 0.028)
--- NOTE | 2016-12-18 15:45 | CT ---
CT BRAIN NONCONTRAST: DATE: 12/18/16 TIME: 1452 hours HISTORY: 51-year-old male with acute altered mental status and acute left-sided deficit. Status post fall res ulting in head trauma. Dr. Koch discussed the findings and recommendation by telephone with Dr. Meyer of the [facility] Emergency Department at 1519 hours on 12/18/16. COMPARISON: 09/12/13. FINDINGS: There is a new finding of a large volume of intraventricular hemorrhage, throughout the right latera l ventricle, and a small to moderate amount in the third ventricle. There is no hemorrhage in the fo urth ventricle. The hematoma crosses the midline and encroaches upon the contralateral left side of the ventricle a distance of approximately 12 mm. The intraventricular hematoma fills and expands the right lateral ventricle, especially the right frontal horn. There probably is an extraventricular c omponent of this hematoma, associated with mass effect. The hematoma has probably begun in the right caudate head or right basal ganglia. There is prominent edema surrounding the temporal horn, trigon e, and occipital horn, of the right lateral ventricle. There is severe patient motion artifact at on e point making it difficult to evaluate one slice of the brain and skull. No grossly displaced dez rial fracture is identified elsewhere. No obvious subdural or epidural hematoma is identified. IMPRESSION: 1. Large intraventricular hematoma filling and expanding the entire right lateral ventricle, plus a smaller amount of intraventricular hematoma in the third ventricle. 2. The origin of the hemorrhage may be from the right caudate nucleus or right basal ganglia, with subsequent breakthrough of the hemorrhage into the right lateral ventricle. 3. Prominent edema around the lower portions of the right lateral ventricle. 4. Mass effect and subfalcine herniation. 5. Neurosurgical consultation is strongly recommended. CODE CR. JN R POS: CET
[2016-12-18 21:29] LABS: Actual Bicarbonate (HCO3a) 22.4 mEq/L (22-26); Base Excess (BEa) -1.5 mEq/L (0 (+/-) 2.5); CO2 Tension 35.1 mmHg (35.0-45.0); Hematocrit-ABG 35.4 % (42.0-52.0); Hemoglobin (Hb) 11.2 g/dL (14.0-18.0); O2 Tension (PaO2) 181.7 mmHg (80.0-100.0); pH, Arterial 7.42 (7.35-7.45)
[2016-12-18 21:30] LABS: Puncture Site LINE
== END 2016-12-18 15:50 | disposition short-term general hospital (02) ==
LOC: MADERS 14:46
DX: I62.9 Nontraumatic intracranial hemorrhage, unspecified (principal); G81.94 Hemiplegia, unspecified affecting left nondominant side; I13.0 Hypertensive heart and chronic kidney disease with heart failure and stage 1 through stage 4 chronic kidney disease, or unspecified chronic kidney disease; I50.9 Heart failure, unspecified
CPT/HCPCS: 36415; 36416; 51702; 70450; 72125; 80053; 82550; 82553; 82805; 83735; 83880; 84484; 85025; 85610; 85730; 93005; 94760; 96372; 96374; J3430